=== PATIENT | female | born 2000 | race Two or more races ===

== ENCOUNTER 2020-01-16 20:24 | Outpatient (CLI) | payer MEDICAID ==
[~2020-01-16] VITALS: Ht 165.1 cm; Wt 83.2 kg
[2020-01-16 20:41] VITALS: BP 114/75
[2020-01-16 21:32] LABS: MICROSCOPIC AUTO
[2020-01-16 21:34] LABS: AMPHETAMINE SCREEN, URINE Negative (Negative); BARBITURATE SCREEN, URINE Negative (Negative); BENZODIAZEPINE SCREEN, URINE Negative (Negative); CANNABINOID SCREEN, URINE Negative (Negative); COCAINE SCREEN, URINE Negative (Negative); METHADONE SCREEN, URINE Negative (Negative); OPIATE SCREEN, URINE Negative (Negative)
== END 2020-01-16 22:00 | disposition home or self-care (01) ==
LOC: LDOP 20:24
PROVIDERS: ATTEND Obstetrics & Gynecology
DX: O46.93 Antepartum hemorrhage, unspecified, third trimester (principal); Z3A.28 28 weeks gestation of pregnancy
CPT/HCPCS: 80307; 81001; 87086; 99201; G0463

== ENCOUNTER 2020-02-28 17:38 | Outpatient (CLI) | payer MEDICAID ==
[~2020-02-28] VITALS: Ht 165.1 cm; Wt 82.7 kg
[2020-02-28 18:20] VITALS: BP 110/58
[2020-02-28 18:54] LABS: MICROSCOPIC INDICATED
[2020-02-28 19:04] LABS: AMPHETAMINE SCREEN, URINE Negative (Negative); BARBITURATE SCREEN, URINE Negative (Negative); BENZODIAZEPINE SCREEN, URINE Negative (Negative); CANNABINOID SCREEN, URINE Negative (Negative); COCAINE SCREEN, URINE Negative (Negative); METHADONE SCREEN, URINE Negative (Negative); OPIATE SCREEN, URINE Negative (Negative)
== END 2020-02-28 19:33 | disposition home or self-care (01) ==
LOC: LDOP 17:38
PROVIDERS: ATTEND Obstetrics & Gynecology
DX: O46.8X2 Other antepartum hemorrhage, second trimester (principal); Z3A.27 27 weeks gestation of pregnancy
CPT/HCPCS: 59025; 76817; 80307; 81001; 87086

== ENCOUNTER 2020-03-27 15:15 | Outpatient (CLI) | payer MEDICAID ==
[~2020-03-27] VITALS: Ht 165.1 cm; Wt 85.9 kg
[2020-03-27 16:01] VITALS: BP 116/57
[2020-03-27 18:54] LABS: AMPHETAMINE SCREEN, URINE Negative (Negative); BARBITURATE SCREEN, URINE Negative (Negative); BENZODIAZEPINE SCREEN, URINE Negative (Negative); CANNABINOID SCREEN, URINE Negative (Negative); COCAINE SCREEN, URINE Negative (Negative); METHADONE SCREEN, URINE Negative (Negative); OPIATE SCREEN, URINE Negative (Negative)
== END 2020-03-27 18:20 | disposition home or self-care (01) ==
LOC: LDOP 15:15
PROVIDERS: ATTEND Obstetrics & Gynecology
DX: O26.893 Other specified pregnancy related conditions, third trimester (principal); O99.333 Smoking (tobacco) complicating pregnancy, third trimester; F17.210 Nicotine dependence, cigarettes, uncomplicated; Z3A.32 32 weeks gestation of pregnancy
CPT/HCPCS: 36415; 59025; 76805; 80307; 86850; 86900; 96372; J2790

== ENCOUNTER 2020-05-12 09:59 | Inpatient (IN) | payer MEDICAID ==
[~2020-05-12] VITALS: Ht 165.1 cm; Wt 87.2 kg
[2020-05-12] MEDS ORDERED: SODIUM CITRATE/CITRIC ACID 30 ML UDC PO PRN (10:30)
[2020-05-12] MEDS ORDERED: TERBUTALINE 1 MG/ML, 1ML SQ PRN (10:30)
[2020-05-12] MEDS ORDERED: TERBUTALINE 1 MG/ML, 1ML IVPush PRN (10:30)
[2020-05-12] MEDS ORDERED: ONDANSETRON 2MG/ML, 2ML IVPush PRN (10:30)
[2020-05-12] MEDS ORDERED: MISOPROSTOL 25 MCG TABLET VG PRN (10:30)
[2020-05-12] MEDS ORDERED: FENTANYL PF 100 MCG/2ML IV PRN (10:30)
[2020-05-12] MEDS ORDERED: OXYTOCIN 30U/ 0.9% NaCL 500ML 500 ML IV ONE (10:30)
[2020-05-12] MEDS ORDERED: OXYTOCIN 30U/ 0.9% NaCL 500ML 500 ML IV PRN (10:30)
[2020-05-12] MEDS ORDERED: D5%-LACTATED RINGERS 1,000 ML IV SCH (10:30)
[2020-05-12] MEDS ORDERED: CALCIUM CARBONATE 500 MG TAB.CHEW PO PRN (10:30)
[2020-05-12 10:33] LABS: BASOPHILS % (AUTO) 1 % (0-1); EOSINOPHILS % (AUTO) 0 % (1-7); LYMPHOCYTES % (AUTO) 15 % (22-44); MEAN CORPUSCULAR HEMOGLOBIN 33.2 pg (27.0-34.8); MEAN CORPUSCULAR HGB CONC 35.2 g/dL (32.4-35.8); MONOCYTES % (AUTO) 6 % (2-9); NEUTROPHILS % (AUTO) 78 % (42-75); PLATELET COUNT 180 x10^3/uL (130-400)
[2020-05-12] MEDS ORDERED: LIDOCAINE 1%, 20ML ONE (10:33)
[2020-05-12] MEDS ORDERED: NEWBORN KIT ONE (10:33)
[2020-05-12] MEDS ORDERED: MISOPROSTOL 25 MCG TABLET ONE (10:33)
[2020-05-12] MEDS ORDERED: OXYTOCIN 30U/ 0.9% NaCL 500ML 500 ML ONE (10:33)
[2020-05-12] MEDS ORDERED: MISOPROSTOL 200 MCG TABLET ONE (10:33)
[2020-05-12 10:34] LABS: MD NO
[2020-05-12] MEDS: LACTATED RINGERS 1,000 ML IV SCH ×2 (10:36→12:56)
[2020-05-12 10:45] LABS: AMPHETAMINE SCREEN, URINE Negative (Negative); BARBITURATE SCREEN, URINE Negative (Negative); BENZODIAZEPINE SCREEN, URINE Negative (Negative); CANNABINOID SCREEN, URINE Negative (Negative); COCAINE SCREEN, URINE Negative (Negative); METHADONE SCREEN, URINE Negative (Negative); OPIATE SCREEN, URINE Negative (Negative)
[2020-05-12] MEDS ORDERED: FENTANYL PF 100 MCG/2ML ONE ×3 (18:42→21:57)
[2020-05-12] MEDS: FENTANYL PF 100 MCG/2ML IVPush PRN ×3 (19:00→22:09)
[2020-05-12 19:33] VITALS: BP 110/58
[2020-05-13] MEDS ORDERED: FENTANYL PF 100 MCG/2ML ONE ×2 (00:11→01:14)
[2020-05-13] MEDS: FENTANYL PF 100 MCG/2ML IVPush PRN ×2 (00:17→01:55)
[2020-05-13] MEDS ORDERED: FENTANYL/BUPIV./NS/PF 250 ML EPIDCONT SCH (00:30)
[2020-05-13] MEDS ORDERED: EPHEDRINE 50 MG/ML, 1ML IVPush PRN (00:30)
[2020-05-13] MEDS ORDERED: NALOXONE 0.4 MG/ML, 1ML IVPush PRN (00:30)
[2020-05-13] MEDS ORDERED: LACTATED RINGERS 1,000 ML IV SCH (00:30)
[2020-05-13] MEDS ORDERED: LACTATED RINGERS 1,000 ML IVBOLUS PRN (00:30)
[2020-05-13] MEDS ORDERED: FENTANYL/BUPIV./NS/PF 250 ML EPIDCONT ONE (02:19)
[2020-05-13] MEDS ORDERED: BUPIVACAINE 0.25% ONE (02:40)
[2020-05-13] MEDS ORDERED: OXYTOCIN 30U/ 0.9% NaCL 500ML 500 ML ONE (10:01)
[2020-05-13] MEDS: OXYTOCIN 30U/ 0.9% NaCL 500ML 500 ML IV SCH ×2 (10:30→20:30)
[2020-05-13] MEDS ORDERED: SIMETHICONE 80 MG CHEW TAB PO PRN (10:30)
[2020-05-13] MEDS ORDERED: RHOGAM FROM BLOOD BANK 1 NOTE EA IM/IV ONE (10:30)
[2020-05-13] MEDS ORDERED: ONDANSETRON 2MG/ML, 2ML IV PRN (10:30)
[2020-05-13] MEDS ORDERED: MISOPROSTOL 200 MCG TABLET PR PRN (10:30)
[2020-05-13] MEDS ORDERED: HYDROcodone/APAP 5/325 TABLET PO PRN ×2 (10:30)
[2020-05-13] MEDS ORDERED: METHYLERGONOVINE 0.2 MG/ML IM PRN (10:30)
[2020-05-13] MEDS ORDERED: IBUPROFEN 800 MG TABLET ONE (10:31)
[2020-05-13 11:30] VITALS: BP 108/65
[2020-05-13] MEDS: IBUPROFEN 800 MG TABLET PO PRN ×2 (11:30→19:14)
[2020-05-13 16:06] VITALS: BP 99/63
[2020-05-13 17:26] LABS: BASOPHILS % (AUTO) 0 % (0-1); EOSINOPHILS % (AUTO) 0 % (1-7); LYMPHOCYTES % (AUTO) 10 % (22-44); MEAN CORPUSCULAR HEMOGLOBIN 33.2 pg (27.0-34.8); MEAN CORPUSCULAR HGB CONC 35.3 g/dL (32.4-35.8); MEAN PLATELET VOLUME 6.9 fL (7.4-10.4); MONOCYTES % (AUTO) 5 % (2-9); NEUTROPHILS % (AUTO) 84 % (42-75); PLATELET COUNT 162 x10^3/uL (130-400); RED BLOOD COUNT 3.44 x10^6/uL (3.82-5.3)
[2020-05-13 17:28] LABS: MD NO
[2020-05-13] MEDS: DOCUSATE 100 MG CAPSULE PO PRN (19:14)
[2020-05-13 19:15] VITALS: BP 110/73
[2020-05-13] MEDS: ACETAMINOPHEN 325 MG TABLET PO PRN (19:49)
[2020-05-14 00:15] VITALS: BP 110/73
[2020-05-14 03:25] VITALS: BP 105/66
[2020-05-14] MEDS: IBUPROFEN 800 MG TABLET PO PRN ×2 (03:25→12:00)
[2020-05-14] MEDS: ACETAMINOPHEN 325 MG TABLET PO PRN ×4 (03:26→13:41)
[2020-05-14] MEDS: OXYTOCIN 30U/ 0.9% NaCL 500ML 500 ML IV SCH (06:30)
[2020-05-14] MEDS: DOCUSATE 100 MG CAPSULE PO PRN (08:23)
[2020-05-14 08:45] VITALS: BP 103/58
[2020-05-14] MEDS ORDERED: PRENATAL VIT/IRON/FA 1 EACH TABLET PO SCH (09:00)
[2020-05-14 12:34] VITALS: BP 118/78
== END 2020-05-14 13:50 | disposition home or self-care (01) | DRG 560 ==
LOC: LDIP 09:59 → 2NW 05-13 11:33
PROVIDERS: ADMIT Obstetrics & Gynecology; ATTEND Obstetrics & Gynecology
PROC: 10E0XZZ Delivery of Products of Conception, External Approach (ICD-10-PCS; principal; 2020-05-13)
PROC: 0KQM0ZZ Repair Perineum Muscle, Open Approach (ICD-10-PCS; 2020-05-13)
PROC: 3E033VJ Introduction of Other Hormone into Peripheral Vein, Percutaneous Approach (ICD-10-PCS; 2020-05-13)
PROC: 3E0R3BZ Introduction of Anesthetic Agent into Spinal Canal, Percutaneous Approach (ICD-10-PCS; 2020-05-13)
PROC: 00HU33Z Insertion of Infusion Device into Spinal Canal, Percutaneous Approach (ICD-10-PCS; 2020-05-13)
DX: O69.82X0 Labor and delivery complicated by other cord entanglement, without compression, not applicable or unspecified (principal); Z3A.38 38 weeks gestation of pregnancy; Z37.0 Single live birth; O40.9XX0 Polyhydramnios, unspecified trimester, not applicable or unspecified; O70.1 Second degree perineal laceration during delivery; O98.52 Other viral diseases complicating childbirth; U07.1 COVID-19
CPT/HCPCS: 36415; 80307; 85025; 86592; 86803; 86850; 86900; 87635; G0378; J3010; J2590; J7120